=== PATIENT | male | born 1995 | race Caucasian/White ===

== ENCOUNTER 2022-04-01 23:12 | Emergency (ER) | payer MEDICAID ==
--- NOTE | 2022-04-01 23:40 | NUR ---
PATIENT CALLED TO TRIAGE , NO RESPONSE. PATIENT LEFT WITHOUT BEING SEEN BY DR. CARDOZA. NO FURTHER CARE PROVIDED FOR PATIENT.
--- NOTE | 2022-04-01 23:50 | NUR ---
CAlled for the second time no response
--- NOTE | 2022-04-02 | NUR ---
called for the third time , no response
== END 2022-04-01 23:40 | disposition left against medical advice (07) ==
LOC: MED 23:12
DX: M54.9 Dorsalgia, unspecified (principal); Z53.21 Procedure and treatment not carried out due to patient leaving prior to being seen by health care provider